=== PATIENT | female | born 1990 | race Caucasian/White ===

== ENCOUNTER → 2021-11-09 | Emergency (ER) | payer MEDICAID, OTHER ==
[~2021-11-09] VITALS: Ht 157.5 cm; Wt 63.6 kg
[~2021-11-09] MED LIST: AML5T PO; CIPR-173 PO; LABETALOL HCL 5 MG/ML 4ML SYRINGE IV ONE; LORA0.5T20 PO; SODIUM CHLORIDE 0.9% 1,000 ML IV ONE; cefTRIAXone 1GM/50ML D5W 50 ML IV ONE; hydrALAZINE HCL 20 MG/ML VL IV ONE
[2021-11-09 15:07] LABS: Basophils # (auto) 0.1 10 ^3/uL (0-0.2); Nucleated Red Blood Cells % 0.1 %
[2021-11-09 15:12] LABS: Basophils % (auto) 0.8 % (0.0-2.0); Eosinophils # (auto) 0.1 10 ^3/uL (0-0.8); Eosinophils % (auto) 0.8 % (0.0-7.0); Hematocrit 41.5 % (36.0-46.0); Hemoglobin 13.2 g/dL (12.2-16.2); Lymphocytes % (auto) 11.5 % (10.0-50.0); Mean Corpuscular Hemoglobin 22.6 pg (28.0-32.0); Mean Corpuscular Hgb Conc. 31.8 g/dL (32.0-36.0); Monocytes % (auto) 5.8 % (0.0-12.0); Neutrophils # (auto) 14.4 10 ^3/uL (1.6-8.6); Neutrophils % (auto) 81.1 % (37.0-80.0); Red Blood Cells 5.85 10^6/uL (4.0-5.20); Red Cell Distribution Width 15.2 % (11.8-14.3); White Blood Cell 17.7 10^3/uL (4.4-10.8)
[2021-11-09 15:23] LABS: Albumin 4.5 g/dL (3.4-5.0); BUN/Creatinine Ratio 4.5; Calcium 9.1 mg/dL (8.5-10.1); Potassium 3.7 mmol/L (3.5-5.1)
[2021-11-09 15:26] LABS: Bilirubin, Total 0.5 mg/dL (0.2-1.0); Total Protein 8.8 g/dL (6.4-8.2)
[2021-11-09 17:28] VITALS: BP 210/154
== END | disposition home or self-care (01) ==
LOC: ER 14:16
DX: I10 Essential (primary) hypertension (principal); F41.9 Anxiety disorder, unspecified; D72.829 Elevated white blood cell count, unspecified; Z79.899 Other long term (current) drug therapy
CPT/HCPCS: 36415; 70450; 80053; 80320; 84484; 84702; 85025; 93005; 96365; 96366; 96375; 99285; J0696; J3490; J7030